=== PATIENT | female | born 1960 | race Caucasian/White ===

== ENCOUNTER 2016-10-19 17:35 | Inpatient (IN) | payer MEDICAID, MEDICARE ==
[~2016-10-19] VITALS: Ht 160 cm; Wt 92.1 kg
[2016-10-19 17:51] VITALS: BP 151/69
--- NOTE | 2016-10-19 19:30 | NUR ---
PT TAKEN TO BED 8
--- NOTE | 2016-10-19 19:34 | NUR ---
came in with c/o lower and upper abd pain since MONDAY, WITH NAUSEA.
--- NOTE | 2016-10-19 19:35 | NUR ---
patient stated shes having on and off diarrhea too.
[2016-10-19] MEDS ORDERED: MORPHINE SULFATE 4 MG/ML SYR IVP ONE (21:00)
[2016-10-19] MEDS ORDERED: LEVOFLOXACIN 500 MG/D5W PREMIX 100 ML IV ONE (21:00)
--- NOTE | 2016-10-19 21:06 | NUR ---
PT TAKEN TO CT
--- NOTE | 2016-10-19 21:15 | NUR ---
PT RETURN FROM CT
[2016-10-19] MEDS ORDERED: HYDROcodone/APAP 7.5/325 MG 1 TAB PO PRN (23:05)
[2016-10-19] MEDS ORDERED: ONDANSETRON 4 MG/2 ML VIAL IVP PRN (23:05)
[2016-10-19] MEDS ORDERED: MORPHINE SULFATE 2 MG/ML SYR IVP PRN (23:05)
[2016-10-19] MEDS ORDERED: ACETAMINOPHEN 325 MG TAB PO PRN (23:05)
--- NOTE | 2016-10-19 23:05 | NUR ---
all results back and noted by ermd and for admission.
--- NOTE | 2016-10-19 23:10 | NUR ---
Patient will be admitted to care of DR. CASTRO. Admited to TELEMETRY. Will go to room 113 Belongings list completed. Report to AKHIL BENITEZ.
--- NOTE | 2016-10-19 23:26 | NUR ---
REPORT GIVEN TO AKHIL BENITEZ.
[2016-10-19 23:45] VITALS: BP 116/75
--- NOTE | 2016-10-19 23:45 | NUR ---
ADMITTED A PT FROM ER. TRANSPORTED VIA GURNEY ACCOMPANIED BY ER NURSE.PT IS AAOX4, FOR TELEMETRY MONITORING, HAS NO COMPLAIN OF PAIN AT THIS TIME. ON ROOM AIR, HAS NO S/S OF RESPIRATORY DISTRESS/DISCOMFORT NOTED. SKIN CHECKING BY CHARGE NURSE, NO SKIN ISSUES, INTACT. IV IS PATENT AND INTACT, SALINE LOCK. ID BAND UPDATED. ORIENTATION TO ROOM ENVIRONMENT DONE. PLAN OF CARE DISCUSSED, VERBALIZED UNDERSTANDING. SAFETY MEASURES INITIATED, CALL LIGHT WITHIN REACH. WILL CONTINUE TO MONITOR.
[2016-10-20] MEDS ORDERED: METFOMIN HYDRO850 MG PO (00:53)
[2016-10-20] MEDS ORDERED: ALLOPURINOL300 MG PO (01:04)
[2016-10-20] MEDS ORDERED: LEVOTHYROXINE100 MCG PO (01:04)
[2016-10-20] MEDS ORDERED: HCTZ/TRIAMTEREN1 CA1 PO (01:04)
[2016-10-20] MEDS ORDERED: ASPIRIN ADULT L81 M2 PO (01:04)
[2016-10-20] MEDS ORDERED: ATENOLOL50 M1 PO (01:04)
[2016-10-20] MEDS ORDERED: LIPITOR20 MG PO (01:04)
[2016-10-20] MEDS ORDERED: POTASSIUM CHLORIDE 10 MEQ TABER PO SCH (01:30)
[2016-10-20] MEDS: NACL 0.9% 1,000 ML IV SCH ×2 (01:53→09:32)
[2016-10-20] MEDS: PANTOPRAZOLE 40 MG INJ VIAL IVP SCH ×2 (01:54→20:29)
[2016-10-20 04:00] VITALS: BP 115/60
--- NOTE | 2016-10-20 04:00 | NUR ---
V/S CHECKED AND STABLE. PT HAS NO COMPLAIN OF PAIN. HAS NO S/S OF RESPIRATORY DISTRESS/DISCOMFORT NOTED.
--- NOTE | 2016-10-20 07:35 | NUR ---
ENDORSED REPORT TO DAYSWYFT NURSE. PT IS IN STABLE CONDITION.
--- NOTE | 2016-10-20 07:40 | NUR ---
RECEIVED REPORT FROM BANDSAW OPERATOR RN. PT SLEEPING. NO S/S OF ACUTE CARDIAC/RESPIRATORY DISTRESS. SAFETY MEASURES IN PLACE, CALL LIGHT WITHIN REACH. WILL CONTINUE PLAN OF CARE AND CONTINUE TO MONITOR.
[2016-10-20 08:00] VITALS: BP 112/53
[2016-10-20] MEDS ORDERED: DEXTROSE 50% 50 ML SYR IVP PRN (08:05)
[2016-10-20] MEDS ORDERED: [UNRECOGNIZED DRUG - OTHER] PO SCH (09:00)
[2016-10-20] MEDS ORDERED: LEVOTHYROXINE SODIUM 100 MCG PO SCH (09:00)
--- NOTE | 2016-10-20 09:06 | NUR ---
PATIENT HAS BEEN SCREENED AND CATEGORIZED HIGH NUTRITION RISK. PATIENT WILL BE SEEN WITHIN 1-2 DAYS OF ADMISSION. 10/20/16-10/21/[address]
[2016-10-20] MEDS ORDERED: TAMSULOSIN 0.4 MG CAP PO SCH (09:30)
[2016-10-20] MEDS: TRIAMTERENE/HCTZ 37.5/25 MG 1 TAB PO SCH (09:33)
[2016-10-20] MEDS: ALLOPURINOL 300 MG TAB PO SCH (09:34)
[2016-10-20] MEDS: DOCUSATE SODIUM 100 MG GELCAP PO SCH (09:34)
[2016-10-20] MEDS: LEVOTHYROXINE 0.1 MG TAB PO SCH (09:34)
[2016-10-20] MEDS: FAMOTIDINE 20 MG TAB PO SCH (09:34)
[2016-10-20] MEDS: ATENOLOL 50 MG TAB PO SCH (09:34)
--- NOTE | 2016-10-20 10:00 | NUR ---
PT TOLERATED HER AM MEDS WELL AND CLEAR LIQUID BREAKFAST. PT SEEN BY DR LEI AND UNDERSTANDS PLAN OF CARE. PT HAS NO S/S OF ACUTE DISTRESS OR DISCOMFORT. PT MADE AWARE OF URINE STRAINING, AND STOOL COLLECTION FOR OCCULT BLOOD, HAT PRESENT IN TOILET. CALL LIGHT WITHIN REACH, WILL CONTINUE TO MONITOR.
--- NOTE | 2016-10-20 10:09 | NUR ---
CM NOTE INITIAL REVIEW FAXED TO [facility] / FAX# [phone]
[2016-10-20] MEDS ORDERED: POTASSIUM CHLORIDE 20% 40 MEQ/15 ML UDC GT SCH (11:27)
[2016-10-20] MEDS: POTASSIUM CHL 40 MEQ/ D5-1/2NS 1,000 ML IV SCH (12:15)
[2016-10-20] MEDS: SENNA 8.6 MG TAB PO SCH ×2 (12:16→17:58)
[2016-10-20] MEDS: BLOOD GLUCOSE MONITORING 1 DEV DEV FS SCH ×3 (12:18→20:44)
--- NOTE | 2016-10-20 13:00 | NUR ---
PT SIGNED EGD/COLONOSCOPY CONSENT. PT TOLERATED MEDICATION WELL. US OF BILATERAL EXTREMITIES ART/VENOUS BEING DONE AT THIS TIME. NO S/S OF ACUTE DISTRESS OR DISCOMFORT. LUNCH BEING HELD FOR US OF ABD. CALL LIGHT WITHIN REACH, WILL CONTINUE TO MONITOR.
--- NOTE | 2016-10-20 15:19 | NUR ---
10/20/16 RD INITIAL ASSESSMENT COMPLETED PLEASE REFER TO NUTRITION ASSESSMENT UNDER CARE ACTIVITY FOR ESTIMATED NUTRITIONAL NEEDS. RD RECOMMENDATIONS: 1. CONTINUE NPO MEDICALLY NECESSARY PER MD 2. WHEN MEDICALLY APPROPRIATE CONSIDER ADVANCE DIET TOLERATED TO CCHO [address] WILL F/U 3-5 DAYS; MODERATE RISK. NIKOLE VALENZUEL[address] RD
--- NOTE | 2016-10-20 15:54 | NUR ---
US OF ABD BEING DONE. PT TOLERATING PROCEDURE WELL, WILL EAT HER HELD LUNCH. NO S/S OF ACUTE DISTRESS OR DISCOMFORT. AWAITING BOWEL MOVEMENT FOR OCCULT BLOOD TESTING. URINE STRAINED, NOTHING PRESENT AT THIS TIME. CALL LIGHT WITHIN REACH, WILL CONTINUE TO MONITOR.
[2016-10-20 16:00] VITALS: BP 108/52
--- NOTE | 2016-10-20 17:34 | NUR ---
PT WATCHING TV. NO S/S OF ACUTE DISTRESS OR DISCOMFORT. CALL LIGHT WITHIN REACH, WILL CONTINUE TO MONITOR.
[2016-10-20] MEDS ORDERED: BOWEL EVACUANT DRINK 4,000 ML PDS PO SCH (19:00)
--- NOTE | 2016-10-20 19:04 | NUR ---
ENDORSED TO PULLBOAT ENGINEER EMMANUEL CREWS. PT HAS NO S/S OF ACUTE DISTRESS OR DISCOMFORT. PT IN STABLE CONDITION.
--- NOTE | 2016-10-20 19:15 | NUR ---
RECEIVED PT AWAKE, DENIES ANY PAIN, NO SOB NOTED, DRINKING GOLYTELY BOWEL PREP, IVF INFUSING WELL, INSTRUCTED NPO AFTER MIDNIGHT, VERBALIZED UNDERSTANDING, CONTINUE TO STRAIN URINE OUTPUT, CALL LIGHT WITHIN REACH.
[2016-10-20] MEDS: LACTULOSE 20 GM/30 ML UDC PO SCH (20:29)
[2016-10-20] MEDS: LEVOFLOXACIN 500 MG/D5W PREMIX 100 ML IV SCH (20:30)
[2016-10-20] MEDS: INSULIN LISPRO SLIDING SCALE 100 UNITS/ML VIAL SUBQ PRN (20:45)
--- NOTE | 2016-10-20 20:50 | NUR ---
BM WITH LARGE BROWN LOOSE STOOL WITH LARGE SEDIMENTS, SENT SPECIMEN FOR OCCULT BLOOD, CONTINUE TAKING GOLYTELY BOWEL PREP, TOLERATING WELL, DUE MEDICATIONS ADMINISTERED, CHICKEN BROTH PROVIDED, ALL NEEDS ATTENDED.
[2016-10-20] MEDS ORDERED: SACCHAROMYCES 250 MG CAP PO SCH (21:00)
--- NOTE | 2016-10-20 23:30 | NUR ---
VITAL SIGNS STABLE, DENIES ANY PAIN, NO N/V NOTED, PT AMBULATED TO BR AND BM WITH CLEAR LIGHT BROWN WATERY STOOL, AWARE OF NPO AFTER MIDNIGHT, IVF INFUSING WELL, CONTINUE TO MONITOR CLOSELY.
[2016-10-21] VITALS: BP 114/62
[2016-10-21] MEDS: POTASSIUM CHL 40 MEQ/ D5-1/2NS 1,000 ML IV SCH ×3 (01:07→16:39)
--- NOTE | 2016-10-21 02:00 | NUR ---
ROUNDED ON PT, ASLEEP, NO SIGNS OF DISTRESS NOTED.
--- NOTE | 2016-10-21 04:53 | NUR ---
PT BACK FROM SHOWER, RESUMED IVF, VERBALIZED CLEAR LIGHT BROWN WATERY STOOL, DENIES ANY PAIN, NO N/V NOTED, MONITORED CLOSELY.
--- NOTE | 2016-10-21 06:00 | NUR ---
PT SLEEPING, BLOOD SUGAR CHECKED WITH 144 RESULT, NO COVERAGE NEEDED, DENIES ANY PAIN, IVF INFUSING WELL.
[2016-10-21] MEDS: BLOOD GLUCOSE MONITORING 1 DEV DEV FS SCH ×4 (06:37→20:37)
--- NOTE | 2016-10-21 07:12 | NUR ---
PT SLEEPING, NO SIGNS OF DISTRESS, REPORT GIVEN TO RN MIKE FOR CONTINUITY OF CARE.
--- NOTE | 2016-10-21 07:15 | NUR ---
RECEIVED REPORT FROM MANUFACTURING MANAGEMENT ASSOCIATE RN. PT IS SLEEPING. NO S/S OF ACUTE CARDIAC/RESPIRATORY DISTRESS OR DISCOMFORT. SAFETY MEASURES AND FALL RISK PRECAUTION IN PLACE. CALL LIGHT WITHIN REACH. WILL CONTINUE PLAN OF CARE AND CONTINUE TO MONITOR.
[2016-10-21 07:51] VITALS: BP 115/53
[2016-10-21] MEDS: LACTOBACILLUS RHAMNOSUS GG 1 EACH CAP PO SCH (08:39)
[2016-10-21] MEDS: SENNA 8.6 MG TAB PO SCH ×3 (08:39→16:40)
[2016-10-21] MEDS: TAMSULOSIN 0.4 MG CAP PO SCH (08:39)
[2016-10-21] MEDS: LEVOTHYROXINE 0.1 MG TAB PO SCH (08:40)
[2016-10-21] MEDS: FAMOTIDINE 20 MG TAB PO SCH (08:40)
[2016-10-21] MEDS: LACTULOSE 20 GM/30 ML UDC PO SCH ×2 (08:40→20:36)
[2016-10-21] MEDS: DOCUSATE SODIUM 100 MG GELCAP PO SCH (08:40)
[2016-10-21] MEDS: TRIAMTERENE/HCTZ 37.5/25 MG 1 TAB PO SCH (08:41)
[2016-10-21] MEDS: ALLOPURINOL 300 MG TAB PO SCH (08:42)
[2016-10-21] MEDS: ATENOLOL 50 MG TAB PO SCH (08:42)
[2016-10-21] MEDS: PANTOPRAZOLE 40 MG INJ VIAL IVP SCH (08:43)
[2016-10-21] MEDS: POLYETHYLENE GLYCOL 17 GM/PKT PO SCH (08:43)
--- NOTE | 2016-10-21 10:19 | NUR ---
CM NOTE PER DRYWALL BOARDHANGER KEELY EXT [phone], SEND REVIEWS TO BOTH [facility] AND [facility]. REVIEW SENT TO [facility] FAX# [phone] PH# [phone] [place] EXT [phone] AND TO [email or web address] FAX# [phone] PH# [phone]
--- NOTE | 2016-10-21 10:19 | NUR ---
PT IS WATCHING TV. PT TOLERATED HER AM MEDS WELL. ATENOLOL HELD, BP 112/67 HR 59. PT IS AWARE OF NPO DUE TO EGD/COLONOSCOPY TODAY. PT HAS NO S/S OF ACUTE DISTRESS OR DISCOMFORT. CALL LIGHT WITHIN REACH, WILL CONTINUE TO MONITOR.
[2016-10-21] MEDS ORDERED: fentaNYL 0.05 MG/ML VIAL ONE (12:01)
[2016-10-21] MEDS ORDERED: MIDAZOLAM 2 MG/2 ML VIAL ONE (12:01)
[2016-10-21] MEDS ORDERED: diphenhydrAMINE 50 MG/ML VIAL ONE (12:02)
--- NOTE | 2016-10-21 13:50 | NUR ---
PT BEING TRANSFERRED TO OR FOR EGD/COLONOSCOPY BY MICROBIOLOGICAL ANALYST. PT HAS NO S/S OF ACUTE DISTRESS OR DISCOMFORT.
[2016-10-21] MEDS: MIDAZOLAM 2 MG/2 ML VIAL IVP ONE ×2 (14:08→15:15)
[2016-10-21] MEDS: fentaNYL 0.05 MG/ML VIAL IVP ONE ×2 (14:10→15:14)
[2016-10-21 16:00] VITALS: BP 106/54
--- NOTE | 2016-10-21 16:00 | NUR ---
PT IS AWAKE, WATCHING TV. PT TOLERATED PROCEDURE WELL. NO S/S OF ACUTE DISTRESS OR DISCOMFORT. CALL LIGHT WITHIN REACH, WILL CONTINUE TO MONITOR.
--- NOTE | 2016-10-21 19:30 | NUR ---
ENDORSED REPORT TO RUBBER GOODS ASSEMBLER RN. PT HAS NO S/S OF ACUTE DISCOMFORT OR DISTRESS. PT IN STABLE CONDITION.
--- NOTE | 2016-10-21 19:30 | NUR ---
RECEIVED REPORT FROM MAR GONZALEZ RN AT BEDSIDE. PT IS ALERT AWAKE ORIENTED X4. INITIAL ASSESSMENT DONE. NO S/S OF RESPIRATORY DISTRESS OR SOB NOTED. NO C/O PAIN OR ANY DISCOMFORT AT THIS TIME. PLAN OF CARE REVIEWED TO PT AND FAMILY AT BEDSIDE AND VERBALIZED UNDERSTANDING. CALL LIGHT WITHIN REACH. WILL CONTINUE TO MONITOR.
[2016-10-21] MEDS: LEVOFLOXACIN 500 MG/D5W PREMIX 100 ML IV SCH (20:36)
[2016-10-21] MEDS: INSULIN LISPRO SLIDING SCALE 100 UNITS/ML VIAL SUBQ PRN (20:39)
[2016-10-21] MEDS ORDERED: SIMVASTATIN 10 MG TAB PO SCH (21:00)
[2016-10-21] MEDS ORDERED: DEXTROSE 50% 50 ML SYR IVP PRN (21:20)
[2016-10-21] MEDS ORDERED: INSULIN LISPRO SLIDING SCALE 100 UNITS/ML VIAL SUBQ PRN (21:25)
[2016-10-22] VITALS: BP 110/61
--- NOTE | 2016-10-22 00:20 | NUR ---
PT IS ASLEEP RIGHT NOW BUT EASILY AROUSABLE. NO S/S OF ANY DISCOMFORT AT THIS TIME. ALL NEEDS ARE ATTENDED. CALL LIGHT WITHIN REACH. WILL CONTINUE TO MONITOR.
--- NOTE | 2016-10-22 01:25 | NUR ---
GAVE REPORT TO VALARIE TERRELL AT BEDSIDE FOR CONTINUITY OF CARE.
--- NOTE | 2016-10-22 01:26 | NUR ---
PATIENT STABLE SLEEPING IN BED,IVF INFUSING WELL,NO PAIN OR DISCOMFORT NOTED.WILL CONTINUE TO MONITOR.
--- NOTE | 2016-10-22 02:10 | NUR ---
PATIENT IS CURRENTLY RESTING IN BED SLEEPING,IVF INFUSING WELL,NO PAIN OR DISCOMFORT NOTED WILL CONTINUE TO MONITOR.
--- NOTE | 2016-10-22 04:05 | NUR ---
PATIENT IS CURRENTLY RESTING IN BED DENIES PAIN AND DISCOMFORT.IVF INFUSING WELL IV SITE PATENT WILL CONTINUE TO MONITOR.
[2016-10-22 04:10] VITALS: BP 97/45
[2016-10-22] MEDS: BLOOD GLUCOSE MONITORING 1 DEV DEV FS SCH (06:47)
--- NOTE | 2016-10-22 07:05 | NUR ---
RECEIVED PATIENT REPORT AT BEDSIDE. PATIENT ASLEEP BUT EASILY AROUSABLE. NO S/S OF DISTRESS NOTED. IV TO THE LEFT HAND INTACT WITH IVF INFUSING WELL. BED LOWERED WITH CALL LIGHT WITHIN REACH. WILL CONTINUE TO MONITOR
[2016-10-22] MEDS ORDERED: BLOOD GLUCOSE MONITORING 1 DEV DEV FS SCH (07:30)
--- NOTE | 2016-10-22 07:34 | NUR ---
PT STABLE SLEEPING IVF INFUSING WELL IV SITE PATENT REPORT ENDORSED TO EMMANUEL MUÑOZ AT BEDSIDE.
--- NOTE | 2016-10-22 08:30 | NUR ---
ADMINISTERED DUE MEDS. PATIENT TOLERATED WELL
[2016-10-22] MEDS: TAMSULOSIN 0.4 MG CAP PO SCH (08:34)
[2016-10-22] MEDS: SENNA 8.6 MG TAB PO SCH (08:35)
[2016-10-22] MEDS: LEVOTHYROXINE 0.1 MG TAB PO SCH (08:35)
[2016-10-22] MEDS: PANTOPRAZOLE 40 MG INJ VIAL IVP SCH (08:35)
[2016-10-22] MEDS: FAMOTIDINE 20 MG TAB PO SCH (08:35)
[2016-10-22] MEDS: ALLOPURINOL 300 MG TAB PO SCH (08:36)
[2016-10-22] MEDS: LACTULOSE 20 GM/30 ML UDC PO SCH (08:36)
[2016-10-22] MEDS: DOCUSATE SODIUM 100 MG GELCAP PO SCH (08:36)
[2016-10-22] MEDS: LACTOBACILLUS RHAMNOSUS GG 1 EACH CAP PO SCH (08:36)
[2016-10-22] MEDS: ATENOLOL 50 MG TAB PO SCH (08:37)
[2016-10-22] MEDS: TRIAMTERENE/HCTZ 37.5/25 MG 1 TAB PO SCH (08:38)
[2016-10-22] MEDS ORDERED: PSYLLIUM 12.2 GM/PKT PO SCH (09:00)
[2016-10-22] MEDS: POLYETHYLENE GLYCOL 17 GM/PKT PO SCH (09:00)
[2016-10-22] MEDS ORDERED: ECOTRIN 81 MG TABEC PO SCH (09:00)
[2016-10-22] MEDS ORDERED: METAMUCIL PACK3.4 GM PO (09:04)
[2016-10-22] MEDS ORDERED: FLOMAX0.4 MG PO (09:06)
[2016-10-22] MEDS ORDERED: GOOD SENSE OMEP20 MG PO (09:16)
--- NOTE | 2016-10-22 10:23 | NUR ---
PATIENT DISCHARGED TO HOME. DISCHARGE INSTRUCTIONS AND DISCHARGE PRESCRIPTIONS GIVEN. PATIENT VERBALIZED UNDERSTANDING. IV LINE DISCONTINUED. PATIENT LEFT WITH ALL HER BELONGINGS AND DISCHARGE PAPERS. PATIENT LEFT IN STABLE CONDITION
== END 2016-10-22 10:26 | disposition home or self-care (01) | DRG 241 ==
LOC: MED 17:35 → MTU 23:20
PROVIDERS: ADMIT Family Medicine; ATTEND Family Medicine
PROC: 0DJD8ZZ Inspection of Lower Intestinal Tract, Via Natural or Artificial Opening Endoscopic (ICD-10-PCS; 2016-10-21)
PROC: 0DB68ZX Excision of Stomach, Via Natural or Artificial Opening Endoscopic, Diagnostic (ICD-10-PCS; principal; 2016-10-21 12:30)
DX: K29.70 Gastritis, unspecified, without bleeding (principal); E11.51 Type 2 diabetes mellitus with diabetic peripheral angiopathy without gangrene; E44.0 Moderate protein-calorie malnutrition; K76.0 Fatty (change of) liver, not elsewhere classified; E11.65 Type 2 diabetes mellitus with hyperglycemia; N20.0 Calculus of kidney; I10 Essential (primary) hypertension; E03.9 Hypothyroidism, unspecified; E87.6 Hypokalemia; N28.1 Cyst of kidney, acquired; M1A.9XX0 Chronic gout, unspecified, without tophus (tophi); E66.9 Obesity, unspecified; D13.5 Benign neoplasm of extrahepatic bile ducts; K20.9 Esophagitis, unspecified; K57.90 Diverticulosis of intestine, part unspecified, without perforation or abscess without bleeding; Z90.710 Acquired absence of both cervix and uterus; Z79.899 Other long term (current) drug therapy; Z79.82 Long term (current) use of aspirin; Z88.1 Allergy status to other antibiotic agents; Z68.36 Body mass index [BMI] 36.0-36.9, adult; Z83.3 Family history of diabetes mellitus; Z82.49 Family history of ischemic heart disease and other diseases of the circulatory system

== ENCOUNTER 2016-12-11 13:23 | Emergency (ER) | payer MEDICARE ==
[~2016-12-11] VITALS: Ht 160 cm; Wt 89.8 kg
[~2016-12-11 13:23] MED LIST: ALLO300T28 PO; ASPI81TA28 PO; ATEN50TA2 PO; ATOR20TA PO; HYDR1CAP PO; LEVO100P PO; METPCK PO; OMEP20TC24 PO; TAMS0.4C96 PO; [UNRECOGNIZED DRUG - CODE] PO
[2016-12-11 13:36] VITALS: BP 144/76
--- NOTE | 2016-12-11 15:48 | NUR ---
56F BIB SELF C/O VAGINAL PAIN, ACHING, NON-RADIATING, 7/10 X 5 DAYS; PT STATES HAD OUTPATIENT SURGERY FOR KIDNEY STONES AT [facility] ON 12/06/16 AND HAS BEEN HAVING PAIN SINCE; PT STATES NOTES HEMATURIA AND URGENCY TO URINATE SINCE SURGERY; PT A&OX4, PERRLA, BL LUNG SOUNDS CLEAR, RR EVEN/UNLABORED, SKIN IS WARM/DRY/INTACT AT THIS TIME; PT DENIES N/V/D AT THIS TIME; PT RESTING IN BED W/ HOB ELEVATED AND IN LOWEST POSITION; POSITIONED FOR COMFORT; ER MD MADE AWARE OF STATUS. WILL CONTINUE TO MONITOR.
--- NOTE | 2016-12-11 15:48 | NUR ---
PT TAKEN TO BED 3.
--- NOTE | 2016-12-11 15:49 | NUR ---
Patient being evaluated by physician at bedside.
[2016-12-11] MEDS ORDERED: NACL 0.9% 1,000 ML IV SCH (15:52)
[2016-12-11] MEDS ORDERED: KETOROLAC 30 MG/ML VIAL IVP ONE (15:55)
[2016-12-11] MEDS ORDERED: ONDANSETRON 4 MG/2 ML VIAL IVP ONE (15:55)
[2016-12-11 16:19] LABS: BASOPHILS # (AUTO) 0.5 K/uL (0.00-0.22); BASOPHILS % (AUTO) 2.5 % (0.0-2.0); EOSINOPHILS # (AUTO) 0.7 K/uL (0-0.4); EOSINOPHILS % (AUTO) 3.7 % (0.0-4.0); HEMATOCRIT 40.6 % (36-48); HEMOGLOBIN 13.2 g/dL (12.0-16.0); LYMPHOCYTES # (AUTO) 3.8 K/uL (2.5-16.5); LYMPHOCYTES % (AUTO) 20.4 % (20.5-51.1); MEAN CORPUSCULAR HEMOGLOBIN 29 pg (27-31); MEAN CORPUSCULAR HGB CONC 32 g/dL (33-37); MEAN CORPUSCULAR VOLUME 90 fL (80-94); MONOCYTES # (AUTO) 1.4 K/uL (0.8-1.0); MONOCYTES % (AUTO) 7.3 % (1.7-9.3); NEUTROPHILS # (AUTO) 12.5 K/uL (1.8-7.7); NEUTROPHILS % (AUTO) 66.1 % (42.2-75.2); PLATELET COUNT (AUTO) 381 K/uL (140-450); RED BLOOD CELL COUNT(AUTO) 4.52 MIL/uL (4.20-5.40); RED CELL DISTRIBUTION WIDTH 12.6 % (11.6-13.7); WHITE BLOOD COUNT (AUTO) 18.9 K/uL (4.8-10.8)
[2016-12-11 16:26] LABS: BILIRUBIN,URINE 1+ (NEGATIVE); BLOOD, URINE 3+ (NEGATIVE); NITRITE, URINE NEGATIVE (NEGATIVE); PH,URINE 6.5 (5.0-9.0); PROTEIN,URINE 2+ (NEGATIVE); UGLUCOSE NEGATIVE (NEGATIVE)
[2016-12-11 16:29] LABS: APPEARANCE,URINE BLOODY (CLEAR)
[2016-12-11 16:30] LABS: COLOR,URINE RED (YELLOW)
[2016-12-11 16:35] LABS: LEUKOCYTE ESTERASE ,URINE 2+ (NEGATIVE)
[2016-12-11 16:38] LABS: ICTOTEST NEGATIVE (NEGATIVE)
[2016-12-11 16:39] LABS: BACTERIA,URINE 2+ /HPF (None Seen); RBC,URINE TOO NUMEROUS TO COUN /HPF (0-5); SQUAMOUS EPITHELIAL CELL,UR None Seen /LPF (0-3 (FEW))
[2016-12-11 16:40] LABS: ANION GAP 10.8 (8-16); CALCIUM 9.1 mg/dL (8.5-10.1); CARBON DIOXIDE 29.6 mmol/L (21-32); CREATININE 0.9 mg/dL (0.6-1.3); POTASSIUM 3.4 mmol/L (3.5-5.1)
[2016-12-11 16:45] LABS: ALBUMIN 3.2 g/dL (3.4-5.0); TOTAL BILIRUBIN 0.4 mg/dL (0.0-1.0)
--- NOTE | 2016-12-11 17:30 | NUR ---
Patient appears to be resting comfortably in bed. Vital Signs within normal limits. Respirations even and unlabored. NO ACUTE DISTRESS AT THIS TIME; WILL CONTINUE TO MONITOR.
[2016-12-11] MEDS ORDERED: cefTRIAXone 2,000 MG in DEXTROSE 5% 100 ML IV ONE (17:50)
[2016-12-11 17:52] LABS: LACTIC ACID 1.1 mmol/L (0.4-2.0)
[2016-12-11] MEDS ORDERED: cefTRIAXone 2,000 MG VIAL ONE (17:59)
--- NOTE | 2016-12-11 18:30 | NUR ---
Patient appears to be resting comfortably in bed. Vital Signs within normal limits. Respirations even and unlabored. NO ACUTE DISTRESS NOTED AT THIS TIME; WILL CONTINUE TO MONITOR.
--- NOTE | 2016-12-11 19:08 | NUR ---
IV removed, catheter intact and site benign. Applied folded 4x4 gauze and tape to stop bleeding. PT TOLERATED PROCEDURE WELL.
[2016-12-11 19:11] VITALS: BP 103/64
--- NOTE | 2016-12-11 19:11 | NUR ---
Patient discharged with v/s stable. Written and verbal after care instructions given and explained. Patient alert, oriented and verbalized understanding of instructions. Ambulatory with steady gait. All questions addressed prior to discharge. ID band removed. Patient advised to follow up with PMD. Rx of LEVAQUIN 500MG TAB & TYLENOL W/ CODEINE NO. 3 TAB given. Patient educated on indication of medication including possible reaction and side effects. Opportunity to ask questions provided and answered.
== END 2016-12-11 19:11 | disposition home or self-care (01) ==
LOC: MED 13:23
DX: N12 Tubulo-interstitial nephritis, not specified as acute or chronic (principal); N23 Unspecified renal colic; E11.9 Type 2 diabetes mellitus without complications; I10 Essential (primary) hypertension; Z88.1 Allergy status to other antibiotic agents
CPT/HCPCS: 36415; 80053; 81001; 81025; 82150; 83605; 83690; 85025; 87040; 87086; 96361; 96365; 96375; 99284; J0696; J1885; J2405; J7030